=== PATIENT | male | born 1995 | race Caucasian/White ===

== ENCOUNTER 2016-10-03 11:36 | Emergency (ER) | payer OTHER ==
[2016-10-03] MEDS ORDERED: Ibuprofen TAB* 600 MG PO ONE (13:36)
--- NOTE | 2016-10-03 13:50 | UC ---
Throat Pain/Nasal Earl HPI - HPI Summary HPI Summary: Patient has sudden onset sore throat, fever and back pain last night, dysphagia. - History of Current Complaint Chief Complaint: UCGeneralIllness Stated Complaint: FEVER,HUNTER,THROAT Time Seen by Provider: 10/03/16 13:35 Hx Obtained From: Patient Onset/Duration: Sudden Onset, Lasting Hours Severity: Severe Pain Intensity: 7 Pain Scale Used: 0-10 Numeric Cough: Nonproductive Associated Signs & Symptoms: Positive: Dysphagia, Fever - Epiglottits Risk Factors Epiglottis Risk Factors: Negative - Allergies/Home Medications Allergies/Adverse Reactions: Allergies Allergy/AdvReac Type Severity Reaction Status Date / Time No Known Allergies Allergy Verified 10/03/16 13:00 Home Medications: Home Medications Dextromethorphan-Phenylephrine [Vicks Dayquil Cold & Flu] 1 cap PO Q6H PRN 10/03 [History Confirmed 10/03/16] PMH/Surg Hx/FS Hx/Imm Hx Previously Healthy: Yes - Surgical History Surgical History: Yes Surgery Procedure, Year, and Place: right ACL surgery 2013 - Family History Known Family History: Negative: Cardiac Disease, Hypertension - Social History Alcohol Use: Weekly Substance Use Type: None Smoking Status (MU): Never Smoked Tobacco Review of Systems Constitutional: Fever, Chills, Fatigue Skin: Negative Eyes: Negative ENT: Sore Throat, Ear Ache Respiratory: Cough Cardiovascular: Negative Gastrointestinal: Negative Genitourinary: Negative Motor: Negative Neurovascular: Negative Musculoskeletal: Myalgia Neurological: Headache Psychological: Negative All Other Systems Reviewed And Are Negative: Yes Physical Exam Triage Information Reviewed: Yes Appearance: Well-Nourished, Ill-Appearing, Pain Distress Vital Signs: Initial Vital Signs Temp 100.3 F 10/03/16 13:01 Pulse 82 10/03/16 13:01 Resp 16 10/03/16 13:01 BP 132/77 10/03/16 13:01 Pulse Ox 99 10/03/16 13:01 Vital Signs Reviewed: Yes Eye Exam: Normal Eyes: Positive: Conjunctiva Clear ENT: Positive: Pharyngeal erythema, TM bulging, TM red - right, Tonsillar swelling, Tonsillar exudate Dental Exam: Normal Neck exam: Normal Neck: Positive: Supple, Nontender, No Lymphadenopathy Respiratory Exam: Normal Respiratory: Positive: Chest non-tender, Lungs clear, Normal breath sounds Cardiovascular Exam: Normal Cardiovascular: Positive: RRR, No Murmur, Pulses Normal Abdominal Exam: Normal Abdomen Description: Positive: Nontender, No Organomegaly, Soft Bowel Sounds: Positive: Present Musculoskeletal Exam: Normal Musculoskeletal: Positive: Strength Intact, ROM Intact, No Edema Neurological Exam: Normal Neurological: Positive: Alert, Muscle Tone Normal Psychological Exam: Normal Skin Exam: Normal Throat Pain/Nasal Course/Dx - Course Course Of Treatment: hx obtained, exam performed, rapid flu neg, rapid strep, ibuprofen given for fever and pain. - Differential Dx/Diagnosis Differential Diagnosis/HQI/PQRI: Pharyngitis, URI Provider Diagnoses: URI. Fever. COugh Discharge - Discharge Plan Condition: Stable Disposition: HOME Patient Education Materials: Upper Respiratory Infection (ED) Additional Instructions: Increase your fluid intake and get plenty of rest. Tylenol or ibuprofen for fever and body aches. Take the medication as prescirbed.
[2016-10-03 14:27] VITALS: BP 133/72
== END 2016-10-03 14:28 | disposition home or self-care (01) ==
LOC: UCCORT 11:36
DX: J06.9 Acute upper respiratory infection, unspecified (principal); R05 Cough; R50.9 Fever, unspecified
CPT/HCPCS: 87502; 87651; 99202; A9270-GY; G0463

== ENCOUNTER 2016-11-04 17:09 | Emergency (ER) | payer OTHER ==
[2016-11-04 17:23] VITALS: BP 135/68
--- NOTE | 2016-11-04 17:58 | UC ---
Abdominal Pain Male HPI - HPI Summary HPI Summary: Pt presents with abdominal pain that began this morning after doing a "heavy workout" two days ago. pt has history of umbilical hernia as a child and is concerned that he may have one again. - History of Current Complaint Chief Complaint: UCGeneralIllness Stated Complaint: poss hernia Time Seen by Provider: 11/04/16 17:43 Hx Obtained From: Patient Onset/Duration: Sudden Onset, Lasting Hours Timing: Constant Severity Initially: Mild Severity Currently: Mild Location: Other - umbilicual Radiates: No Character: Aching Aggravating Factor(s):: Movement Alleviating Factor(s): Rest, Position - Allergies/Home Medications Allergies/Adverse Reactions: Allergies Allergy/AdvReac Type Severity Reaction Status Date / Time No Known Allergies Allergy Verified 11/04/16 17:16 Home Medications: Home Medications NK [No Home Medications Reported] 11/04/16 [History Confirmed 11/04/16] PMH/Surg Hx/FS Hx/Imm Hx Previously Healthy: Yes - Surgical History Surgical History: Yes Surgery Procedure, Year, and Place: right ACL surgery 2013 - Family History Known Family History: Negative: Cardiac Disease, Hypertension - Social History Occupation: Employed Full-time Alcohol Use: Weekly Substance Use Type: None Smoking Status (MU): Never Smoked Tobacco - Immunization History Most Recent Influenza Vaccination: 2016 Most Recent Tetanus Shot: UTD Most Recent Pneumonia Vaccination: N/A Review of Systems Constitutional: Negative Skin: Negative Eyes: Negative ENT: Negative Respiratory: Negative Cardiovascular: Negative Gastrointestinal: Abdominal Pain Genitourinary: Negative Motor: Negative Neurovascular: Negative Musculoskeletal: Myalgia Neurological: Negative Psychological: Negative All Other Systems Reviewed And Are Negative: Yes Physical Exam Triage Information Reviewed: Yes Appearance: Well-Appearing Vital Signs: Initial Vital Signs Temp 98.9 F 11/04/16 17:17 Pulse 65 11/04/16 17:17 Resp 18 11/04/16 17:17 BP 135/68 11/04/16 17:17 Pulse Ox 99 11/04/16 17:17 Vital Signs Reviewed: Yes Neck exam: Normal Respiratory Exam: Other Respiratory: Positive: No respiratory distress Cardiovascular Exam: Normal Abdominal Exam: Normal Musculoskeletal Exam: Normal Neurological Exam: Normal Psychological Exam: Normal Skin Exam: Normal Abd Pain Male Course/Dx - Differential Dx/Clinical Impression Differential Diagnosis/HQI/PQRI: Constipation, Other - hernia Provider Diagnoses: abdominal muscle strain. Discharge - Discharge Plan Condition: Stable Disposition: HOME Patient Education Materials: Muscle Strain (ED) Referrals: Non Staff,Doctor [Primary Care Provider] - If Needed Additional Instructions: Please follow up with your PCP or return to clinic as needed.
== END 2016-11-04 18:06 | disposition home or self-care (01) ==
LOC: UCCORT 17:09
DX: S39.011A Strain of muscle, fascia and tendon of abdomen, initial encounter (principal); X50.3XXA Overexertion from repetitive movements, initial encounter; Y93.B9 Activity, other involving muscle strengthening exercises; Y92.9 Unspecified place or not applicable
CPT/HCPCS: 99211; G0463

== ENCOUNTER → 2017-12-09 12:51 | Emergency (ER) | payer SELFPAY ==
[~2017-12-09 12:51] MED LIST: Tetan/Diph/Pertus SYR(Tdap)* 0.5 ML SYR(BOOSTRIX) use SYR IM ONE
== END | disposition home or self-care (01) ==
LOC: OHCORT 12:51 → UCCORT 12:51
DX: Z23 Encounter for immunization (principal)
CPT/HCPCS: 90715